=== PATIENT | female | born 1985 | race Caucasian/White ===

== ENCOUNTER 2017-07-19 16:16 | Outpatient (CLI) | payer OTHER ==
--- NOTE | 2017-07-19 20:09 | MRI ---
MRI LUMBAR SPINE NONCONTRAST: DATE: 07-19-17 HISTORY: 32-year-old female with chronic low back pain and bilateral lumbar radiculopathy. COMPARISON: 05-08-13 FINDINGS: There are five lumbar type vertebrae. Vertebral body heights and disc spaces are maintained. Normal d isc signal and normal bone marrow signal. Conus medullaris terminates at an appropriate level. Cauda equina is arranged in a symmetrical, normal distribution throughout the thecal sac. No high grade asha tral spinal canal stenosis at any level. No severe neural foraminal stenosis or janeth nerve root impi ngement at any level. Mild degenerative facet changes bilaterally at lower levels. Perivertebral spac es are unremarkable. No hydronephrosis. No major interval change. IMPRESSION: No major pathology. HA Harper POS: [facility]
== END 2017-07-19 16:17 | disposition home or self-care (01) ==
LOC: MRI 16:16
PROVIDERS: ATTEND Physical Medicine & Rehabilitation
DX: M54.5 Low back pain (principal)
CPT/HCPCS: 72148

== ENCOUNTER 2020-03-10 08:20 | Emergency (ER) | payer OTHER | END 2020-03-10 08:55 | disposition home or self-care (01) | LOC: ERS 08:20 | DX: L03.211 Cellulitis of face (principal); E03.9 Hypothyroidism, unspecified; F41.9 Anxiety disorder, unspecified; F17.210 Nicotine dependence, cigarettes, uncomplicated; Z79.899 Other long term (current) drug therapy | CPT/HCPCS: 99283 ==

== ENCOUNTER 2020-05-06 08:03 | Outpatient (CLI) | payer OTHER ==
--- NOTE | 2020-05-06 09:03 | MMO ---
Bilateral MAMMO Bilat Diag [facility]. CLINICAL HISTORY: Patient is 35 years old and is seen for diagnostic exam,lump or thickening and pain in the left breast. The patient has the following family history of breast cancer: paternal grandmother, malignant (generic). The patient has no personal history of cancer. VIEWS: The views performed were: bilateral craniocaudal with tomosynthesis; bilateral mediolateral oblique with tomosynthesis; and bilateral mediolateral with tomosynthesis. FILMS COMPARED: The present examination has been compared to a prior imaging study performed at [facility] on 05/06/2020. This study has been interpreted with the assistance of computer-aided detection. MAMMOGRAM FINDINGS: There are scattered fibroglandular densities. There are no suspicious masses, suspicious calcifications, or new areas of architectural distortion. IMPRESSION: THERE IS NO MAMMOGRAPHIC EVIDENCE OF MALIGNANCY. A ROUTINE FOLLOW-UP MAMMOGRAM AT AGE 41 IS RECOMMENDED. THE RESULTS OF THIS EXAM WERE SENT TO THE PATIENT. ACR BI-RADS Category 1 - Negative MAMMOGRAPHY NOTE: 1. A negative mammogram report should not delay a biopsy if a dominant of clinically suspicious mass is present. 2. Approximately 10% to 15% of breast cancers are not detected by mammography. 3. Adenosis and dense breasts may obscure an underlying neoplasm. Reported by: HANNAH SANOTRO MD Electonically Signed: [id number]
--- NOTE | 2020-05-06 11:35 | ULT ---
LEFT BREAST ULTRASOUND: HISTORY: Breast pain more in the upper outer left breast with no palpable abnormality. COMPARISON: Mammogram study done earlier. FINDINGS: Real-time imaging of the area of interest failed to show any cystic or solid lesions. IMPRESSION: Unremarkable left breast ultrasound. POS: OFF
== END 2020-05-06 08:04 | disposition home or self-care (01) ==
LOC: BICMAMMO 08:03
PROVIDERS: ATTEND Physician Assistant
DX: N63.21 Unspecified lump in the left breast, upper outer quadrant (principal)
CPT/HCPCS: 77066; G0279

== ENCOUNTER 2020-08-11 06:58 | Emergency (ER) | payer OTHER ==
[2020-08-11 08:14] LABS: Bilirubin Negative (Negative); Blood, Urine 3+ (Negative); Clarity Turbid (Clear); Glucose, Urine (Dipstick) Normal (Negative); Ketone, Urine Negative (Negative); Leukocyte 500 Leu/uL (Negative); Nitrite Negative (Negative); Protein, Urine (Dipstick) 20 mg/dL (Neg-Trace); RBC/HPF 21-50 HPF (0-3); Specific Gravity, Urine 1.015 (1.002-1.036); Urobilinogen Normal mg/dL (Less than 2); WBC/HPF Greater than 50 HPF (0-3); pH, Urine 5.5 (5.0-9.0)
[2020-08-11 08:15] LABS: Bacteria/HPF 1+ HPF (None Seen); Pregnancy Test - Urine (BHCG) Negative (Negative); Pregu Control Background? CLEAR/WHITE (CLR/WHITE); Pregu Control Bar Appear? YES (CONTROL BAR); Specific Gravity 1.015 (1.002-1.036)
[2020-08-13 21:22] LABS: Chlamydia by PCR Not Detected (NotDetected); GC by PCR Not Detected (NotDetected)
== END 2020-08-11 10:11 | disposition home or self-care (01) ==
LOC: ERS 06:58
DX: N39.0 Urinary tract infection, site not specified (principal); Z87.891 Personal history of nicotine dependence; E03.9 Hypothyroidism, unspecified
CPT/HCPCS: 81003; 81015; 81025; 87086; 87480; 87491; 87510; 87591; 87660; 99283

== ENCOUNTER 2021-11-20 15:48 | Outpatient (CLI) | payer OTHER | END 2021-11-20 15:49 | disposition home or self-care (01) | LOC: BICRAD 15:48 | PROVIDERS: ATTEND Family Medicine | DX: R07.9 Chest pain, unspecified (principal) | CPT/HCPCS: 71046 ==

== ENCOUNTER 2025-01-29 19:01 | Emergency (ER) | payer OTHER ==
[2025-01-29 21:32] LABS: #Basophils 0.10 10x3/uL (0.0-0.2); #Eosinophils 0.43 10x3/uL (0.0-0.7); #Monocytes 0.86 10x3/uL (0.11-0.59); #Neutrophils 6.34 10x3/uL (1.40-6.50); %Basophils 0.8 % (0.0-1.0); %Eosinophils 3.4 % (0.0-10.0); %Lymphocytes 38.8 % (21.0-51.0); %Monocytes 6.8 % (0.0-10.0); %Neutrophils 50.0 % (42.0-75.0); Hematocrit 42.6 % (36.0-47.0); Hemoglobin 13.9 g/dL (12.0-16.0); Mean Corpuscular Hemoglobin 27.4 pg (27.0-31.0); Mean Corpuscular Volume 83.9 fL (78.0-98.0); Platelet Count 373 10x3/uL (130-400); Red Blood Cell (RBC) Count 5.08 mill/uL (4.20-5.40); White Blood Cell (WBC) Count 12.69 10x3/uL (4.8-10.8)
[2025-01-29] MEDS ORDERED: diphenhydrAMINE 50 MG/ML VIAL ONE (21:35)
[2025-01-29] MEDS ORDERED: Ketorolac Tromethamine 30 MG (1 mL) VIAL ONE (21:35)
[2025-01-29] MEDS ORDERED: Metoclopramide HCl 10 MG (2 mL) VIAL ONE (21:36)
[2025-01-29 21:43] LABS: BHCG - Serum Negative (NEGATIVE); Pregs Control Background? CLEAR/WHITE (CLR/WHITE); Pregs Control Bar Appear? YES (CONTROL BAR)
[2025-01-29 21:51] LABS: ALT (SGPT) 11 U/L (Less than 34); AST (SGOT) 49 U/L (11-34); Albumin 4.0 g/dL (3.1-4.5); Alkaline Phosphatase 122 U/L (40-110); Anion Gap 14 mmol/L (10-20); BUN (Urea Nitrogen) 16 mg/dL (7.0-18.7); Bilirubin, Total 0.2 mg/dL (0.3-1.2); Calc. Creatinine Clearance 0 mL/min (70-130); Calcium 9.3 mg/dL (7.8-10.44); Carbon Dioxide 24 mmol/L (22-29); Chloride 103 mmol/L (98-107); Globulin 4.7 g/dL (2.4-3.5); Glucose 80 mg/dL (70-105); Potassium 4.2 mmol/L (3.5-5.1); Sodium 137 mmol/L (136-145)
== END 2025-01-29 23:25 | disposition home or self-care (01) ==
LOC: ERS 19:01
DX: R51.9 Headache, unspecified (principal); Z87.891 Personal history of nicotine dependence
CPT/HCPCS: 70450; 80053; 84703; 85025; 96374; 96375; J1200; J1885; J2765; J2919